=== PATIENT | male | born 1975 | race Caucasian/White ===

== ENCOUNTER 2024-07-12 08:37 | Emergency (ER) | payer BC, SELFPAY ==
[2024-07-12] VITALS (8 sets, daily range): BP systolic 126–175; BP diastolic 83–99; PULSE 82–92; RESP 16–21; TEMP 36.7–36.9; O2SAT 95–99; BMI 36.2
--- NOTE | 2024-07-12 08:42 | ECG_ITS ---
APPROVED REPORT Exam: Resting ECG HR:84 bpm ECG Measurements Heart Rate 84 AXES NC 147 P 71 QRSd 90 QRS 80 QT 349 T 37 QTc 390 Conclusion SINUS RHYTHM MODERATE ST DEPRESSION [0.05+ mV ST DEPRESSION] ABNORMAL ECG No STEMI Electronically signed by : RINA REYNOLDS, 07/13/2024 06:31:28
--- NOTE | 2024-07-12 09:00 | XR_ITS ---
FINAL REPORT TECHNIQUE: Single view chest CLINICAL HISTORY: Chest pain FINDINGS: A single view of the chest was obtained. The heart and mediastinum are within normal limits. The lungs are clear. There is no pneumothorax. IMPRESSION: No acute cardiopulmonary process. Reviewed, Interpreted and Dictated by Nigel Delgado MD Transcribed by Nabila Higgins Authenticated and . [facility]
[2024-07-12] MEDS: LORazepam 2MG/ML VIAL 1 MG IV (09:13)
[2024-07-12 09:22] LABS: Albumin Level 4.8 g/dl (3.5-5.0); Chloride 105 mmol/L (98-107); Potassium 3.8 mmoL/L (3.5-5.1); Sodium 141 mmol/L (136-145)
[2024-07-12 09:25] LABS: Alanine Aminotransferase 48 U/L (12-78); Albumin/Globulin Ratio 1.8 (1.1-1.8); Alkaline Phosphatase 86 U/L (38-126); Anion Gap 14.8 mEq/L (5-15); Aspartate Amino Transferase 41 U/L (17-59); Bilirubin,Total 0.6 mg/dl (0.2-1.3); Blood Urea Nitrogen 16 mg/dl (9-20); Carbon Dioxide 25 mmol/L (22.0-30.0); Creatinine Clearance Estimated 188 mL/min (50-200); Estimated Glomerular Filt Rate 103 ml/min (>60); GFR (African American) 125 ML/MIN (>60); Globulin 2.7 g/dL (1.3-3.2); Total Protein,Serum 7.5 g/dl (6.3-8.2)
[2024-07-12 09:26] LABS: Glucose 116 mg/dl (74-100)
[2024-07-12 09:28] LABS: Basophils # 0.1 K/mm3 (0-0.2); Basophils % 0.7 % (0.1-2.0); Eosinophils # 0.1 K/mm3 (0.0-0.4); Eosinophils % 1.2 % (0.1-12.0); Hematocrit 46.3 % (42.0-52.0); Hemoglobin 15.8 g/dL (14.1-18.0); Lymphocytes # 1.1 K/mm3 (0.7-4.5); Lymphocytes % 13.4 % (10-50); Mean Corpuscular HGB Conc 34.1 g/dL (31.8-35.4); Mean Corpuscular Hemoglobin 28.4 pg (27.0-31.2); Mean Corpuscular Volume 83.1 fl (80-94); Mean Platelet Volume 10.7 fl (7.4-10.4); Monocytes # 0.7 K/mm3 (0.1-1.0); Monocytes % 8.1 % (1.7-9.3); Neutrophils # 6.4 K/mm3 (1.8-7.8); Neutrophils % 75.9 % (37.0-80.0); Platelet Count 204 K/mm3 (142-424); Red Blood Count 5.57 M/mm3 (4.60-6.20); Red Cell Distribution Width 13.2 % (11.5-17.5); White Blood Count 8.5 K/mm3 (4.8-10.8)
--- NOTE | 2024-07-12 09:30 | ED_ITS ---
Discharge Plan Disposition Patient Disposition: Home, Self-Care Condition: Good Prescriptions Prescriptions: No Action lisinopril 10 mg Tablet 10 mg PO DAILY Referrals Follow up/Referrals: Payal Washburn APRN [Primary Care Provider] - See instructions Activity Restrictions/Add. Instructions Additional Instructions/Restrictions: Follow-up with your primary care physician. If you develop any new or worsening symptoms, or if you become concerned for your health for any reason, return to the emergency department for evaluation Clinical Impressions Clinical Impression: Chest pain Print Language Print Language: Nepalese Discharge ED Provider: Yg Gutiérrez Adult HPI General Chief complaint: PAIN Stated complaint: BP high, chest tightness Time Seen by Provider: 07/12/24 08:55 Mode of Arrival: Ambulatory Source of Information: Patient Limitations: No Limitations Description of Symptoms (Recalled from ER Triage Doc. by RN): pt presents to ED with c/o high blood pressure, anxiety. at home reports pt had incident happen approx 1 month ago and he has since had anxiety. pt took blood pressure at home and had high reading. pt reports intermittent chest tightness associated with high blood pressure. History of Present Illness HPI narrative: Anthony Hampton is a 49-year-old male with past medical history of hypertension who presents to the emergency department for complaints of chest pain and elevated blood pressure. Patient notes that 1 month ago, he had a coworker in his arms of a massive heart attack. Ever since then, he has had increasing anxiety with starting yesterday, it seemed to get acutely worse. He reports worsening bilateral anterior chest pain with intermittently high blood pressure at home. Patient denies any cardiac history. He denies any abdominal pain, nausea, vomiting, diarrhea. He reports some mild shortness of breath today. Patient reports that today while going to work, his symptoms got worse and he immediately had to turn around. Related Data Home Medications ?Medication ?Instructions ?Recorded ?Confirmed lisinopril 10 mg tablet 10 mg PO DAILY 07/12/24 07/12/24 Allergies Allergy/AdvReac Type Severity Reaction Status Date / Time No Known Allergies Allergy Verified 07/12/24 08:59 [facility] Disclaimer: The information contained in this section may have been updated after the patient was seen, as this information can be updated by other users. Social History Smoking Status: Never smoker alcohol intake: never current occupational status: employed Travel in the last 8 weeks: None ROS Obtained: Yes Systems reviewed as appropriate & no additional complaints except as documented Physical Exam General General appearance: alert, in no apparent distress and anxious Head Head exam: atraumatic Eye Eye exam: Present normal appearance ENT ENT exam: Present normal external ear exam Neck Neck exam: Present full ROM Chest Chest inspection: Present symmetric chest wall rise Respiratory Respiratory exam: Present normal lung sounds bilaterally; Absent respiratory distress Cardiovascular Cardiovascular exam: Present regular rate and normal rhythm Abdominal Exam Abdominal exam: Present soft; Absent tenderness or guarding exam: Present deferred Extremities Exam Extremities exam: Present normal inspection Back Exam Back exam: Present normal inspection Neurological Exam Neurological exam: Present alert and oriented X3 Psychiatric Psychiatric exam: Present normal affect Skin Skin exam: Present warm and dry Medical Decision Making Medical Records Screening: Per USPSTF and CDC recommendations, given the prevalence of disease in our region, it is our hospital?s policy to screen for HIV and viral Hepatitis for all patients aged 18 and over and those with ongoing risk factors. Da Inquiry Pt receiving controlled substance: No Vital Signs: 07/12/24 08:38 07/12/24 09:25 07/12/24 09:30 Temperature 98.4 F Temperature Source Oral Pulse Rate 82 82 Pulse Rate [Left Radial] 88 Respiratory Rate 21 Blood Pressure 161/98 H 150/89 H Blood Pressure [Right Arm] 175/99 H Blood Pressure Mean [Right Arm] 124 02 Sat by Pulse Oximetry 95 97 95 Oxygen Delivery Method Room Air Room Air Room Air 07/12/24 10:00 07/12/24 10:30 07/12/24 11:00 Temperature Temperature Source Pulse Rate 90 87 87 Pulse Rate [Left Radial] Respiratory Rate Blood Pressure 126/83 136/93 H 134/86 Blood Pressure [Right Arm] Blood Pressure Mean [Right Arm] 02 Sat by Pulse Oximetry 96 95 96 Oxygen Delivery Method Room Air Room Air Room Air Lab Data Lab Results 07/12/24 08:42: WBC 8.5, RBC 5.57, Hgb 15.8, Hct 46.3, MCV 83.1, MCH 28.4, MCHC 34.1, RDW 13.2, Plt Count 204, MPV 10.7 H, Neut % (Auto) 75.9, Lymph % (Auto) 13.4, [place] % (Auto) 8.1, Eos % (Auto) 1.2, Baso % (Auto) 0.7, Neut # (Auto) 6.4, Lymph # (Auto) 1.1, [place] # (Auto) 0.7, Eos # (Auto) 0.1, Baso # (Auto) 0.1, Sodium 141, Potassium 3.8, Chloride 105, Carbon Dioxide 25, Anion Gap 14.8, BUN 16, Creatinine 0.80, Estimated Creat Clear 188, Estimated GFR 103, Est GFR ( Amer) 125, Glucose 116 H, Calcium 9.0, Total Bilirubin 0.6, AST 41, ALT 48, Alkaline Phosphatase 86, Troponin I < 0.01, NT-Pro-B Natriuret Pep 22.7, Total Protein 7.5, Albumin 4.8, Globulin 2.7, Albumin/Globulin Ratio 1.8 07/12/24 08:42 07/12/24 08:42 Orders (Tests/Meds): ED MEDICATIONS Generic Name Dose Route Start Last Admin Trade Name Freq PRN Reason Stop Dose Admin Sodium Chloride 10 ml 07/12/24 09:02 Sodium Chloride 0.9% 10ml Vial IV 08/11/24 09:01 NEEDED PRN to Dilute Lorazepam inj Discontinued Medications Generic Name Dose Route Start Last Admin Trade Name Freq PRN Reason Stop Dose Admin Lorazepam 1 mg 07/12/24 09:02 07/12/24 09:13 Lorazepam 2mg/Ml Vial IV 07/12/24 09:03 1 mg ONCE ONE Administration ORDERS Category Date Time Status CXR --portable [XR chest portable] Stat Exams 07/12/24 09:00 Completed BNP [NT Pro Brain Natriuretic Pep.] Stat Lab 07/12/24 08:42 Completed CBC w/Auto Diff [Complete Blood Count Auto Diff] Stat Lab 07/12/24 08:42 Completed CMP [Comprehensive Metabolic Panel] Stat Lab 07/12/24 08:42 Completed Troponin I Q3H Lab 07/12/24 12:15 Ordered Troponin I Q3H Lab 07/12/24 15:15 Ordered Troponin I Stat Lab 07/12/24 08:42 Completed ECG Data Tracing #1: I reviewed this ECG and interpreted as documented below: EKG interpreted by me personally. Normal sinus rhythm. No significant ST elevation or depression. No T wave inversions. QTc normal at 390. MN interval normal at 147 HEART Score History (anamnesis): Slightly suspicious ECG: Normal Age: 45-65 years Risk factors: 1-2 risk factors Troponin: </= normal limit HEART Score: 2 Medical Decision Narrative: Anthony Hampton is a 49-year-old male with past medical history of hypertension who presents to the emergency department for complaints of chest pain and elevated blood pressure. Patient notes that 1 month ago, he had a coworker in his arms of a massive heart attack. Ever since then, he has had increasing anxiety with starting yesterday, it seemed to get acutely worse. He reports worsening bilateral anterior chest pain with intermittently high blood pressure at home. Patient denies any cardiac history. He denies any abdominal pain, nausea, vomiting, diarrhea. He reports some mild shortness of breath today. On arrival, patient is hypertensive but hemodynamically stable, afebrile, breathing comfortably on room air with oxygen saturation at 95% on room air. Physical exam, stated above, revealed an anxious but nontoxic appearing male. Cardiopulmonary exams unremarkable. Abdomen is soft, nontender nondistended. The remainder of his physical exam is grossly unremarkable. Differential diagnosis includes, but is not limited to: Hypertensive emergency, ACS, aortic dissection, pneumonia, panic attack, anxiety, among others. Workup in the emergency department included: CBC, CMP, troponin, BNP, EKG and chest x-ray. Patient was given 1 mg IV Ativan for symptoms EKG was unremarkable. See interpretation above. Chest x-ray interpreted by me personally. No focal consolidation, no pneumothorax, no widening of the mediastinum. See radiology report for details. Patient's blood pressure improved some over his ED visit without intervention and he remained hemodynamically stable. Low concern for hypertensive emergency at this point. Patient is instructed to follow-up with his primary care physician for further management of his blood pressure and anxiety. Return precautions were given. All questions were answered. He demonstrated understanding and was in agreement with this plan. He was then discharged from the emergency department in stable condition. Patient stated that he has follow up with his PCP in the morning. Critical Care Critical Care Time Critical Care Time: No
[2024-07-12 09:36] LABS: NT Pro Brain Natriuretic Pep. 22.7 pg/mL (0-125)
[2024-07-12 09:40] LABS: Troponin I < 0.01 ng/ml (0.00-0.034)
== END 2024-07-12 11:35 | disposition home or self-care (01) ==
PROVIDERS: Emergency Provider Student in an Organized Health Care Education/Training Program; PCP Nurse Practitioner Family
DX: R07.9 Chest pain, unspecified (principal); I10 Essential (primary) hypertension; R06.02 Shortness of breath; F41.9 Anxiety disorder, unspecified
CPT/HCPCS: 71045; 80053; 83880; 84484; 85025; 93005; 96374; 99284; J2060

== ENCOUNTER 2024-08-02 10:25 | Outpatient (CLI) | payer BC, SELFPAY | END 2024-08-02 23:59 | disposition home or self-care (01) | LOC: RT 10:26 | PROVIDERS: PCP Nurse Practitioner Family; Visit Provider Nurse Practitioner Family | DX: R00.2 Palpitations (principal); R06.00 Dyspnea, unspecified; F41.9 Anxiety disorder, unspecified; I10 Essential (primary) hypertension; R00.0 Tachycardia, unspecified; R07.89 Other chest pain | CPT/HCPCS: 93270 ==

== ENCOUNTER 2024-08-04 10:03 | Outpatient (CLI) | payer BC, SELFPAY ==
--- NOTE | 2024-08-04 | CA_ITS ---
APPROVED REPORT EXAM: Comprehensive 2D, Doppler, and color-flow Echocardiogram Supervisor Treating And Pumping: Diamante Rivers CRT Ht: 5 ft 11 in Wt: 218lbs BSA: 2.19 BP: 154/106 mmHg Indications: CP, SOB, HTN 2D Dimensions LA Volume 30.60 mL LA Volume Index 13.70 mL/m2 (M/F) 16-34 M-Mode Dimensions RVDd 2.32 cm (0.9-2.6) LA Diam 3.36 cm (1.9-4.0) LVDd 5.10 cm (3.5-5.7) LVDs 3.06 cm (3.5-5.7) IVSd 1.11 cm (0.6-1.1) PWd 0.94 cm (0.6-1.1) EF (Teich) 70.40% FS 40.00% EDV (Teich) 123.80 mL TAPSE 2.09 (<1.7) ESV (Teich) 36.70 mL LV Diastology E Decel Time 173 (160-240 msec) E/A Ratio 1.15 MED A' 12.10 cm/s LAT A' 9.60 cm/s Aortic Valve AO Peak GR. 6.30 mmHg Mitral Valve MV A Velocity 65.0 (40-130 cm/s) E/A Ratio 1.15 Pulmonary Valve PV Peak Velocity 134.0 (50-150 cm/s) Tricuspid Valve TR P. Velocity 205.00 cm/s RAP Estimate 10.00 mmHg RVSP 26.80 mmHg Left Ventricle The left ventricle is normal size. The left ventricular systolic function is normal. The left ventricular ejection fraction is within the normal range. There is normal left ventricular wall thickness. There is normal LV segmental wall motion. The left ventricular diastolic function is normal. LVEF is 55%. Right Ventricle The right ventricle is normal size. The right ventricular systolic function is normal. Atria The left atrium size is normal. The right atrium size is normal. There is no Doppler evidence of interatrial shunt. Aortic Valve Aortic valve opens well. There is no aortic valvular stenosis. No aortic regurgitation is present. Mitral Valve The mitral valve is normal in structure. No evidence of mitral valve stenosis. Trace mitral regurgitation. Tricuspid Valve Tricuspid valve is grossly normal in structure and function. Trace tricuspid regurgitation. There is insufficient TR jet to estimate RVSP. Pulmonic Valve The pulmonary valve is normal in structure. Trace pulmonic regurgitation. Great Vessels The aortic root is normal in size. IVC is normal in size and collapses >50% with inspiration. Pericardium There is no pericardial effusion. Other Information Study Quality: Adequate Conclusion Normal biventricular systolic function. No significant valvular stenosis or regurgitation. Electronically signed by : Bita Fabian MD 08/15/2024 22:19:40
--- NOTE | 2024-08-04 | CA_ITS ---
APPROVED REPORT Exam: Exercise Treadmill Technologist: Shannon Lee Ht: 6 ft 1 in Wt: 218 lbs BSA: 2.23 m2 HR: 78 bpm BP: 131/88 mmHg Stress Test Details HR Resting HR: 78 bpm Max Heart Rate (APMHR): 172 bpm Target HR (85% APMHR): 146 bpm Recovery HR: 133 bpm BP Resting BP: 131.0/88.0 mmHg Recovery BP: 198.0/92.0 mmHg ECG Stress ECG Conclusion During darius protocol pt experinced mild SOA. No arrhythmias noted. No ST changes noted. Electronically signed by : Bita Fabian MD 08/07/2024 21:24:09
== END 2024-08-04 23:59 | disposition home or self-care (01) ==
PROVIDERS: PCP Nurse Practitioner Family; Visit Provider Nurse Practitioner Family
DX: R07.89 Other chest pain (principal); R00.0 Tachycardia, unspecified; R06.00 Dyspnea, unspecified; I10 Essential (primary) hypertension
CPT/HCPCS: 93017; 93018; 93306

== ENCOUNTER 2025-03-09 15:12 | Outpatient (CLI) | payer BC, SELFPAY ==
[2025-03-09 16:11] LABS: Hematocrit 42.7 % (42.0-52.0); Hemoglobin 14.6 g/dL (14.1-18.0); Immature Granulocytes % 0.4 %; Mean Corpuscular HGB Conc 34.2 g/dL (31.8-35.4); Mean Corpuscular Hemoglobin 29.3 pg (27.0-31.2); Mean Corpuscular Volume 85.6 fl (80-94); Nucleated Red Blood Cells % 0 %; Platelet Count 232 K/mm3 (142-424); Red Blood Count 4.99 M/mm3 (4.60-6.20); Red Cell Distribution Width-SD 41.9 fL; White Blood Count 7.7 K/mm3 (4.8-10.8)
[2025-03-09 18:39] LABS: Albumin Level 4.2 g/dl (3.5-5.0); Chloride 97 mmol/L (98-107); Potassium 3.8 mmoL/L (3.5-5.1); Sodium 132 mmol/L (136-145)
[2025-03-09 18:41] LABS: Bilirubin,Unconjugated 0.4 mg/dL (0.0-1.1); Blood Urea Nitrogen 16 mg/dl (9-20); Creatinine,Serum 1.00 mg/dl (0.66-1.25); Estimated Glomerular Filt Rate 80 ml/min (>60); GFR (African American) 97 ML/MIN (>60)
[2025-03-09 18:42] LABS: Alanine Aminotransferase 32 U/L (12-78); Alkaline Phosphatase 92 U/L (38-126); Anion Gap 11.8 mEq/L (5-15); Aspartate Amino Transferase 28 U/L (17-59); Bilirubin,Direct 0.0 mg/dl (0.0-0.4); Bilirubin,Indirect 0.4 mg/dL (0.0-0.9); Bilirubin,Total 0.4 mg/dl (0.2-1.3); Calcium 8.7 mg/dl (8.4-10.2); Carbon Dioxide 27 mmol/L (22.0-30.0); Cholesterol 178 mg/dl (140-200); Glucose 96 mg/dl (74-100); Magnesium 2.0 mg/dl (1.6-2.3); Total Protein,Serum 7.1 g/dl (6.3-8.2); Triglycerides 376 mg/dl (30-150)
[2025-03-09 18:43] LABS: HDL Cholesterol 47 mg/dl (40-60)
[2025-03-09 18:50] LABS: Free T4 (Free Thyroxine) 1.00 ng/dl (0.78-2.19)
[2025-03-09 19:12] LABS: Thyroid Stimulating Hormone 2.00 uIU/mL (0.465-4.68)
== END 2025-03-09 23:59 | disposition home or self-care (01) ==
LOC: LAB 15:13
PROVIDERS: PCP Nurse Practitioner Family; Visit Provider Nurse Practitioner Family
DX: I10 Essential (primary) hypertension (principal)
CPT/HCPCS: 36415; 80048; 80061; 80076; 83735; 84439; 84443; 85025